=== PATIENT | male | born 1960 | race Two or more races ===

== ENCOUNTER → 2018-07-04 | Outpatient (CLI) | payer BC ==
--- NOTE | 2018-07-04 09:37 | CARD ---
MR#: [id number] Date of Study: 07/04/2018 Ordering Physician: YOANNA SNYDER, Referring Physician: YOANNA SNYDER, Tech: Fanny Ramirez APPROVED REPORT EXAM: Two-dimensional and M-mode echocardiogram with Doppler and color Doppler. Other Information Quality : AverageHR: 75bpm Rhythm : NSR INDICATION Peripheral Edema RISK FACTORS Hyperlipidemia Smoking smokes a pack a day 2D DIMENSIONS RVDd3.1 (2.9-3.5cm)Left Atrium(2D)3.7 (1.6-4.0cm) IVSd1.0 (0.7-1.1cm)Aortic Root(2D)2.9 (2.0-3.7cm) LVDd5.5 (3.9-5.9cm)LVOT Diameter2.2 (1.8-2.4cm) PWd1.1 (0.7-1.1cm)LVDs3.9 (2.5-4.0cm) FS (%) 29.1 %SV82.1 ml LVEF(%)55.3 (>50%) Aortic Valve AoV Peak Edgar.141.8cm/sAoV VTI30.0cm AO Peak GR.8.0mmHgLVOT Peak Edgar.84.5cm/s LVOT VTI 18.52cmAO Mean GR.5mmHg DESTINEY (VMAX)1.49ze2QYE (VTI)2.38cm2 Mitral Valve MV E Cgvnufls26.5cm/sMV DECEL [id number] MV A Kdqgildb46.3cm/sMV IQZ48qg E/A Ratio0.9MVA (PHT)3.19cm2 TDI E/Lateral E'7.0E/Medial E'7.8 Pulmonary Valve PV Peak Uqjwdlti01.8cm/sPV Peak Grad.4mmHg Tricuspid Valve TR P. Dxjmjsbd660aa/sRAP SSMWSDZR4omDr TR Peak Gr.57lfOdPSXX53sjSo LEFT VENTRICLE The left ventricle is normal size. There is normal left ventricular wall thickness. The left ventricu lar systolic function is normal and the ejection fraction is within normal range. The Ejection Fracti on is 50-55%. There is normal LV segmental wall motion. Transmitral Doppler flow pattern is Grade I-a bnormal relaxation pattern. RIGHT VENTRICLE The right ventricle is normal size. There is normal right ventricular wall thickness. The right ventr icular systolic function is normal. ATRIA The left atrium size is normal. The right atrium size is normal. The interatrial septum is intact wit h no evidence for an atrial septal defect or patent foramen ovale as noted on 2-D or Doppler imaging. AORTIC VALVE The aortic valve is normal in structure and function. Doppler and Color Flow revealed trace aortic re gurgitation. There is no significant aortic valvular stenosis. MITRAL VALVE The mitral valve is normal in structure and function. There is no mitral valve stenosis. Doppler and Color Flow revealed trace mitral regurgitation. TRICUSPID VALVE The tricuspid valve is normal in structure and function. Doppler and Color Flow revealed trace tricus pid regurgitation. There is no tricuspid valve stenosis. PULMONIC VALVE The pulmonic valve is not well visualized. Doppler and Color Flow revealed no pulmonic valvular regur gitation. There is no pulmonic valvular stenosis. GREAT VESSELS The aortic root is normal in size. The IVC is normal in size and collapses >50% with inspiration. PERICARDIAL EFFUSION There is no evidence of significant pericardial effusion. Critical Notification Critical Value: No <Conclusion> The left ventricular systolic function is normal and the ejection fraction is within normal range. Th e Ejection Fraction is 50-55%. There is normal LV segmental wall motion. Signed by : Yoanna Snyder, Electronically Approved : 07/04/2018 09:36:38
--- NOTE | 2018-07-04 11:31 | RAD ---
MR#: [id number] Date of Study: 07/04/2018 Ordering Physician: YOANNA CASIANO, Referring Physician: YOANNA CASIANO, Tech: Feroz Bryant MBA, RDMS, RVT, RDCS, RTR APPROVED REPORT Patient Location : OUT-PATIENT Indications Lower Extremity Edema : Bilateral The right great saphenous vein measures 5.1 mm and the left great saphenous vein measures 5.6 mm and both veins do not reveal any reflux. Bilateral lesser saphenous veins do not reveal any reflux. Critical Notification Critical Value: No <Conclusion> Negative for reflux in the bilateral greater and lesser saphenous veins. Signed by : Yoanna Casiano, Electronically Approved : 07/04/2018 11:30:00
== END | disposition home or self-care (01) ==
LOC: ECHO 08:05
PROVIDERS: ATTEND Internal Medicine Cardiovascular Disease
DX: R60.0 Localized edema (principal); E78.49 Other hyperlipidemia; F17.210 Nicotine dependence, cigarettes, uncomplicated
CPT/HCPCS: 36415; 83880; 93306; 93970